=== PATIENT | female | born 1965 | race Caucasian/White ===

== ENCOUNTER 2016-10-27 07:52 | Inpatient (IN) | payer OTHER ==
[~2016-10-27] VITALS: Ht 177.8 cm; Wt 101.8 kg
[~2016-10-27 07:52] MED LIST: CENTRUM SILVER1 EAC4 PO; HYDROCODON-ACE1 EAC7 PO; L-LYSINE1000 M1 PO; NAPROSYN500 MG PO; PROBIOTIC1 EAC1 PO; XANAX0.25 MG PO
[2016-10-27 08:57] LABS: HEMATOCRIT 39.1 % (36.0-46.0); MCH 29.8 PG (29.0-34.0); MCHC 35.3 G/DL (30.0-36.0); MCV 84.4 FL (83-99); PLATELET COUNT 189 K/uL (156-360); RBC DIS.WIDTH-CV 12.1 % (11.8-14.6); RBC DIS.WIDTH-SD 36.8 % (39-53); RED BLOOD COUNT 4.63 M/uL (3.80-5.20); WHITE BLOOD COUNT 6.1 K/uL (4.1-10.2)
[2016-10-27 09:10] LABS: CHLORIDE 106 mEq/L (99-109); POTASSIUM 3.8 mEq/L (3.7-5.4); SODIUM 139 mEq/L (136-147)
[2016-10-27 09:12] LABS: GLUCOSE 140 mg/dL (70-99)
[2016-10-27 09:14] LABS: ANION GAP 10 MEQ/L (2-14); TOTAL BILIRUBIN 0.9 mg/dL (0.0-1.0)
[2016-10-27 09:16] LABS: ALKALINE PHOSPHATASE 48 IU/L (3-129); GFR ESTIMATE (CALCULATED) > 59 mL/min/
[2016-10-27 09:17] LABS: UREA NITROGEN (BUN) 13 mg/dL (9-23)
[2016-10-27 09:20] LABS: LIPASE 9 U/L (1.0-51.0)
[2016-10-27] MEDS ORDERED: CENTRUM SPECIA1 EACH PO (11:06)
[2016-10-27] MEDS ORDERED: NOLVADEX20 MG PO (11:07)
[2016-10-27] MEDS ORDERED: LISINOPRIL-HCT1 EACH PO (11:07)
[2016-10-27 15:49] LABS: ADD MIUA? NO; BILIRUBIN NEGATIVE; BLOOD NEGATIVE; COLOR YELLOW ((YELLOW)); GLUCOSE (STRIP) NEGATIVE; KETONES 5; LEUKOCYTES NEGATIVE; NITRITE NEGATIVE; PROTEIN (STRIP) NEGATIVE; SPECIFIC GRAVITY 1.009 (1.000-1.030); UROBILINOGEN 0.2 MG/DL (0.2-1.0)
[2016-10-27 15:52] VITALS: BP 124/61
[2016-10-27 23:46] VITALS: BP 122/67
[2016-10-28 08:57] VITALS: BP 127/74
[2016-10-28 12:34] VITALS: BP 118/73
[2016-10-28 19:40] VITALS: BP 127/73
[2016-10-28 23:35] VITALS: BP 118/57
[2016-10-29 08:40] VITALS: BP 116/71
[2016-10-29 16:00] VITALS: BP 144/72
[2016-10-29 19:40] VITALS: BP 139/72
[2016-10-29 23:15] VITALS: BP 129/72
[2016-10-30 03:21] VITALS: BP 132/74
[2016-10-30 07:27] LABS: EOSINOPHIL (%) 0.4 % (0-5); HEMATOCRIT 36.1 % (36.0-46.0); IMMATURE GRANULOCYTE (%) 0.2 % (0.0-0.7); INSTRUMENT ABS NEUTROPHIL CT 2.6 K/uL; MCH 29.5 PG (29.0-34.0); MCHC 33.5 G/DL (30.0-36.0); MEAN PLAT.VOLUME 10.3 uM^3 (9.5-12.4); MONOCYTE (%) 6.6 % (3-12); MONOCYTE COUNT 0.3 K/uL (0-0.8); NEUTROPHIL (%) 52.2 % (45-76); NEUTROPHIL COUNT 2.6 K/uL (1.8-6.4); PLATELET COUNT 158 K/uL (156-360); RBC DIS.WIDTH-CV 12.4 % (11.8-14.6)
[2016-10-30 08:20] LABS: ALKALINE PHOSPHATASE 40 IU/L (3-129); ANION GAP 7 MEQ/L (2-14); CHLORIDE 107 MEQ/L (99-109); GFR ESTIMATE (CALCULATED) > 59 mL/min/; GLUCOSE 102 mg/dL (70-99); SAMPLE HEMOLYSIS CHECK 0; SAMPLE ICTERIC CHECK 0; SAMPLE LIPEMIA CHECK 0; SODIUM 143 MEQ/L (136-147); TOTAL BILIRUBIN 0.9 MG/DL (0.0-1.0); UREA NITROGEN (BUN) 5 mg/dL (9-23)
[2016-10-30 08:36] VITALS: BP 129/63
[2016-10-30 16:00] VITALS: BP 119/64
[2016-10-30 23:23] VITALS: BP 138/72
[2016-10-31 08:31] VITALS: BP 133/76
[2016-10-31 15:40] VITALS: BP 113/60
[2016-11-01] VITALS: BP 128/61
[2016-11-01 07:15] LABS: EOSINOPHIL (%) 1.4 % (0-5); EOSINOPHIL COUNT 0.1 K/uL (0-0.3); HEMATOCRIT 34.4 % (36.0-46.0); IMMATURE GRANULOCYTE (%) 0.3 % (0.0-0.7); INSTRUMENT ABS NEUTROPHIL CT 1.8 K/uL; LYMPHOCYTE COUNT 1.6 K/uL (1.0-2.8); MCH 29.7 PG (29.0-34.0); MCHC 33.7 G/DL (30.0-36.0); MCV 88.2 FL (83-99); MEAN PLAT.VOLUME 9.7 uM^3 (9.5-12.4); MONOCYTE (%) 7.7 % (3-12); MONOCYTE COUNT 0.3 K/uL (0-0.8); NEUTROPHIL (%) 47.8 % (45-76); NEUTROPHIL COUNT 1.8 K/uL (1.8-6.4); PLATELET COUNT 130 K/uL (156-360); RBC DIS.WIDTH-CV 12.3 % (11.8-14.6); RBC DIS.WIDTH-SD 39.5 % (39-53); WHITE BLOOD COUNT 3.7 K/uL (4.1-10.2)
[2016-11-01 07:24] VITALS: BP 128/61
[2016-11-01 07:43] LABS: ALKALINE PHOSPHATASE 37 IU/L (3-129); ANION GAP 6 MEQ/L (2-14); CHLORIDE 108 MEQ/L (99-109); GFR ESTIMATE (CALCULATED) > 59 mL/min/; GLUCOSE 92 mg/dL (70-99); POTASSIUM 3.9 MEQ/L (3.7-5.4); SAMPLE HEMOLYSIS CHECK 0; SAMPLE ICTERIC CHECK 0; SAMPLE LIPEMIA CHECK 0; SODIUM 145 MEQ/L (136-147); UREA NITROGEN (BUN) 6 mg/dL (9-23)
[2016-11-01 07:45] LABS: TOTAL BILIRUBIN 0.6 MG/DL (0.0-1.0)
[2016-11-01 15:22] VITALS: BP 135/65
[2016-11-01 23:01] VITALS: BP 134/68
[2016-11-02 07:31] VITALS: BP 138/67
[2016-11-02 15:18] VITALS: BP 135/64
[2016-11-02 23:30] VITALS: BP 122/77
[2016-11-03 07:22] LABS: EOSINOPHIL (%) 2.1 % (0-5); EOSINOPHIL COUNT 0.1 K/uL (0-0.3); HEMATOCRIT 36.7 % (36.0-46.0); IMMATURE GRANULOCYTE (%) 0.2 % (0.0-0.7); INSTRUMENT ABS NEUTROPHIL CT 2.3 K/uL; LYMPHOCYTE COUNT 1.6 K/uL (1.0-2.8); MCH 29.5 PG (29.0-34.0); MCHC 33.8 G/DL (30.0-36.0); MCV 87.2 FL (83-99); MONOCYTE (%) 7.6 % (3-12); MONOCYTE COUNT 0.3 K/uL (0-0.8); NEUTROPHIL (%) 53.8 % (45-76); NEUTROPHIL COUNT 2.3 K/uL (1.8-6.4); RBC DIS.WIDTH-CV 12.3 % (11.8-14.6); RBC DIS.WIDTH-SD 39.1 % (39-53); RED BLOOD COUNT 4.21 M/uL (3.80-5.20); WHITE BLOOD COUNT 4.3 K/uL (4.1-10.2)
[2016-11-03 07:34] LABS: ANION GAP 7 MEQ/L (2-14); CHLORIDE 105 MEQ/L (99-109); GFR ESTIMATE (CALCULATED) > 59 mL/min/; GLUCOSE 89 mg/dL (70-99); POTASSIUM 3.8 MEQ/L (3.7-5.4); SAMPLE HEMOLYSIS CHECK 0; SAMPLE ICTERIC CHECK 0; SAMPLE LIPEMIA CHECK 0; SODIUM 141 MEQ/L (136-147); UREA NITROGEN (BUN) 6 mg/dL (9-23)
[2016-11-03 08:20] LABS: MEAN PLAT.VOLUME 10.8 uM^3 (9.5-12.4)
[2016-11-03 08:21] VITALS: BP 118/58
[2016-11-03 15:42] VITALS: BP 156/80
[2016-11-03 16:34] VITALS: BP 118/58
[2016-11-03 23:31] VITALS: BP 130/68
[2016-11-04 06:21] LABS: EOSINOPHIL (%) 0.3 % (0-5); HEMATOCRIT 36.1 % (36.0-46.0); IMMATURE GRANULOCYTE (%) 0.3 % (0.0-0.7); INSTRUMENT ABS NEUTROPHIL CT 5.1 K/uL; LYMPHOCYTE COUNT 1.3 K/uL (1.0-2.8); MCH 29.8 PG (29.0-34.0); MCHC 34.1 G/DL (30.0-36.0); MCV 87.4 FL (83-99); MEAN PLAT.VOLUME 9.9 uM^3 (9.5-12.4); MONOCYTE (%) 6.3 % (3-12); MONOCYTE COUNT 0.4 K/uL (0-0.8); NEUTROPHIL (%) 74.5 % (45-76); NEUTROPHIL COUNT 5.1 K/uL (1.8-6.4); PLATELET COUNT 152 K/uL (156-360); RBC DIS.WIDTH-CV 12.1 % (11.8-14.6); RBC DIS.WIDTH-SD 38.8 % (39-53); RED BLOOD COUNT 4.13 M/uL (3.80-5.20)
[2016-11-04 06:22] LABS: WHITE BLOOD COUNT 6.8 K/uL (4.1-10.2)
[2016-11-04 06:52] LABS: ALKALINE PHOSPHATASE 40 IU/L (3-129); ANION GAP 10 MEQ/L (2-14); CHLORIDE 103 MEQ/L (99-109); GFR ESTIMATE (CALCULATED) > 59 mL/min/; GLUCOSE 83 mg/dL (70-99); SAMPLE HEMOLYSIS CHECK 0; SAMPLE ICTERIC CHECK 0; SAMPLE LIPEMIA CHECK 0; SODIUM 142 MEQ/L (136-147); UREA NITROGEN (BUN) 8 mg/dL (9-23)
[2016-11-04 06:53] LABS: POTASSIUM 4.8 MEQ/L (3.7-5.4); TOTAL BILIRUBIN 0.8 MG/DL (0.0-1.0)
[2016-11-04 07:28] VITALS: BP 124/63
[2016-11-04 16:05] VITALS: BP 125/65
[2016-11-05 00:01] VITALS: BP 119/60
[2016-11-05 00:02] VITALS: BP 119/60
[2016-11-05 07:20] VITALS: BP 125/64
[2016-11-05 08:22] LABS: EOSINOPHIL (%) 1.4 % (0-5); EOSINOPHIL COUNT 0.1 K/uL (0-0.3); HEMATOCRIT 33.6 % (36.0-46.0); IMMATURE GRANULOCYTE (%) 0.4 % (0.0-0.7); INSTRUMENT ABS NEUTROPHIL CT 3.3 K/uL; LYMPHOCYTE COUNT 1.3 K/uL (1.0-2.8); MCH 29.7 PG (29.0-34.0); MCHC 33.3 G/DL (30.0-36.0); MCV 89.1 FL (83-99); MEAN PLAT.VOLUME 9.9 uM^3 (9.5-12.4); MONOCYTE (%) 8.5 % (3-12); MONOCYTE COUNT 0.4 K/uL (0-0.8); NEUTROPHIL (%) 64.1 % (45-76); NEUTROPHIL COUNT 3.3 K/uL (1.8-6.4); PLATELET COUNT 131 K/uL (156-360); RBC DIS.WIDTH-CV 12.4 % (11.8-14.6); RBC DIS.WIDTH-SD 40.6 % (39-53); RED BLOOD COUNT 3.77 M/uL (3.80-5.20); WHITE BLOOD COUNT 5.2 K/uL (4.1-10.2)
[2016-11-05 08:50] LABS: ALKALINE PHOSPHATASE 48 IU/L (3-129); ANION GAP 5 MEQ/L (2-14); CHLORIDE 105 MEQ/L (99-109); GFR ESTIMATE (CALCULATED) > 59 mL/min/; GLUCOSE 103 mg/dL (70-99); POTASSIUM 4.2 MEQ/L (3.7-5.4); SAMPLE HEMOLYSIS CHECK 0; SAMPLE ICTERIC CHECK 0; SAMPLE LIPEMIA CHECK 0; SODIUM 141 MEQ/L (136-147); UREA NITROGEN (BUN) 9 mg/dL (9-23)
[2016-11-05] MEDS ORDERED: DOCUSATE SODIU100 MG PO (11:22)
[2016-11-05] MEDS ORDERED: FENTANYL1 EAC5 TD (11:23)
[2016-11-05] MEDS ORDERED: PERCOCET 5/31 TABLET PO (11:23)
== END 2016-11-05 15:14 | disposition home or self-care (01) | DRG 983 ==
LOC: EME 07:52 → 5EAST 11:04 → EDOF 11:04 → 5EAST 15:49
PROVIDERS: Hospitalist; Nurse Practitioner Family
DX: D21.4 Benign neoplasm of connective and other soft tissue of abdomen (principal); Z90.10 Acquired absence of unspecified breast and nipple; I10 Essential (primary) hypertension; F41.9 Anxiety disorder, unspecified; Z85.3 Personal history of malignant neoplasm of breast; Z92.3 Personal history of irradiation; Z68.32 Body mass index [BMI] 32.0-32.9, adult
CPT/HCPCS: 71260; 74176; 80048; 80053; 81003; 83690; 85025; 85027; 88173; 88305; 88309; 88341 TC; 88342 TC; 93971; 99281; 99285; J0330; J1100; J1170; J1335; J1650; J1885; J2250; J2270; J2405; J2710; J3010; J7030